=== PATIENT | female | born 1965 | race Caucasian/White ===

== ENCOUNTER 2016-07-08 03:17 | Emergency (ER) | payer SELFPAY ==
[~2016-07-08] VITALS: Ht 152.4 cm; Wt 49.9 kg
[~2016-07-08 03:17] MED LIST: ALBU2.5V13
[2016-07-08 03:56] VITALS: BP 157/98
== END 2016-07-08 04:08 | disposition home or self-care (01) ==
LOC: ER 03:19
DX: R05 Cough (principal); J44.9 Chronic obstructive pulmonary disease, unspecified; Z90.710 Acquired absence of both cervix and uterus; F17.200 Nicotine dependence, unspecified, uncomplicated
CPT/HCPCS: 71010; 99283; A4606; Z7610

== ENCOUNTER 2025-04-16 07:27 | Inpatient (IN) | payer OTHER ==
[~2025-04-16] VITALS: Ht 152.4 cm; Wt 49.2 kg
[2025-04-16] VITALS (12 sets, daily range): BP systolic 121–143; BP diastolic 67–77; TEMP 97.9–98.8; O2SAT 88–99
[2025-04-16] MEDS: IPRATROPIUM NEB FS 0.5 MG/2.5 ML AMPUL.NEB NEB ONE (07:57)
[2025-04-16] MEDS: ALBUTEROL FS 2.5 MG/3 ML VIAL.NEB NEB ONE (07:57)
[2025-04-16] MEDS: IV NS 0.9% 1,000 ML BAG IV ONE (08:00)
[2025-04-16] MEDS ORDERED: ALBUTEROL FS 2.5 MG/3 ML VIAL.NEB ONE (08:04)
[2025-04-16] MEDS ORDERED: IPRATROPIUM NEB FS 0.5 MG/2.5 ML AMPUL.NEB ONE (08:04)
[2025-04-16 08:08] LABS: PLATELET COUNT (AUTO) 320 K/uL (150-450); RED BLOOD CELL COUNT(AUTO) 4.81 MIL/uL (4.0-5.2); RED CELL DISTRIBUTION WIDTH 13.4 % (11.5-15.0); WHITE BLOOD COUNT (AUTO) 15.4 K/uL (4.3-11.0)
[2025-04-16 08:15] LABS: CALCIUM, SERUM 9.3 mg/dL (8.5-10.1); CREATININE 1.1 mg/dL (0.6-1.3); SODIUM SERUM 134 mmol/L (136-145); UREA NITROGEN, BLOOD 13 mg/dL (7-18)
[2025-04-16] MEDS ORDERED: ACETAMINOPHEN 325 MG TABLET ONE ×2 (08:17→08:36)
[2025-04-16] MEDS ORDERED: GUAIFENESIN/D-METHORPHAN HB 5 ML UDC ONE (08:17)
[2025-04-16 08:21] LABS: ASPARTATE AMINOTRANSFERASE 23 U/L (15-37); TOTAL PROTEIN, SERUM 7.6 g/dL (6.4-8.2)
[2025-04-16] MEDS: ACETAMINOPHEN 325 MG TABLET PO ONE (08:34)
[2025-04-16] MEDS: GUAIFENESIN/D-METHORPHAN HB 5 ML UDC PO ONE (08:35)
[2025-04-16] MEDS: CEFTRIAXONE 1GM BAG (ER ONLY) 50 ML IV ONE (09:13)
[2025-04-16] MEDS ORDERED: CEFTRIAXONE 1GM BAG (ER ONLY) 50 ML IV ONE (09:34)
[2025-04-16] MEDS: CEFTRIAXONE 1 G in IV D5W 50 ML IV ONE (09:45)
[2025-04-16] MEDS ORDERED: ONDANSETRON HCL/PF 4 MG/2 ML VIAL IVP PRN (10:30)
[2025-04-16] MEDS ORDERED: MAG HYDROX/AL HYDROX/SIMETH 30 ML UDC PO PRN (10:30)
[2025-04-16] MEDS ORDERED: MAGNESIUM HYDROXIDE 30 ML UDC PO PRN (10:30)
[2025-04-16] MEDS ORDERED: Z GUARD REMEDY 4 OZ OINT TP PRN (10:30)
[2025-04-16] MEDS: AZITHROMYCIN 500 MG in IV D5W 250 ML IV ONE (10:48)
[2025-04-16] MEDS: ENOXAPARIN SODIUM 40 MG/0.4 ML DISP.SYRIN SQ SCH (11:00)
[2025-04-16] MEDS ORDERED: CEFTRIAXONE 1 G in IV D5W 50 ML IV SCH (11:00)
[2025-04-16] MEDS: AZITHROMYCIN 500 MG in IV D5W 250 ML IV SCH (12:57)
[2025-04-16] MEDS: IV NS 0.9% 1,000 ML IV PRN (13:08)
[2025-04-16] MEDS: ALBUTEROL FS 2.5 MG/3 ML VIAL.NEB NEB PRN (13:34)
[2025-04-16] MEDS: IPRATROPIUM NEB FS 0.5 MG/2.5 ML AMPUL.NEB NEB PRN (13:34)
[2025-04-16] MEDS: ACETAMINOPHEN 325 MG TABLET PO PRN (16:59)
[2025-04-16] MEDS: HYDROCODONE/APAP 5/325MG TABLET PO PRN (19:41)
[2025-04-16] MEDS: TEMAZEPAM 15 MG CAPSULE PO PRN (23:37)
[2025-04-17] VITALS (14 sets, daily range): BP systolic 113–160; BP diastolic 44–81; TEMP 97.5–99; O2SAT 9–99
[2025-04-17] MEDS: GUAIFENESIN/D-METHORPHAN HB 5 ML UDC PO ONE (00:36)
[2025-04-17] MEDS: PANTOPRAZOLE 40 MG TABLET.DR PO SCH (08:23)
[2025-04-17] MEDS ORDERED: HYDR12.55 PO (09:13)
[2025-04-17] MEDS ORDERED: LISI20TA30 PO (09:13)
[2025-04-17 09:57] LABS: PLATELET COUNT (AUTO) 268 K/uL (150-450); RED BLOOD CELL COUNT(AUTO) 4.29 MIL/uL (4.0-5.2); RED CELL DISTRIBUTION WIDTH 13.8 % (11.5-15.0); WHITE BLOOD COUNT (AUTO) 13.2 K/uL (4.3-11.0)
[2025-04-17] MEDS: LISINOPRIL (20MG) 20 MG TABLET PO SCH (10:00)
[2025-04-17 10:58] LABS: CALCIUM, SERUM 8.6 mg/dL (8.5-10.1); CREATININE 0.8 mg/dL (0.6-1.3); PHOSPHORUS 3.0 mg/dL (2.5-4.9); SODIUM SERUM 138.0 mmol/L (136-145); UREA NITROGEN, BLOOD 7.0 mg/dL (7-18)
[2025-04-17 11:04] LABS: LDL 79.0 mg/dL (0-99)
[2025-04-17] MEDS: CEFTRIAXONE 1 G in IV D5W 50 ML IV SCH (11:09)
[2025-04-17] MEDS ORDERED: MENTHOL/CETYLPYRD (CEPACOL) 1 LOZ LOZENGE PO PRN (12:00)
[2025-04-17] MEDS: ALBUTEROL FS 2.5 MG/3 ML VIAL.NEB NEB SCH (14:00)
[2025-04-17] MEDS: IPRATROPIUM NEB FS 0.5 MG/2.5 ML AMPUL.NEB NEB SCH (14:00)
[2025-04-17] MEDS: POTASSIUM CHLORIDE 20 MEQ TAB.PRT.SR PO ONE (18:57)
[2025-04-17] MEDS: GUAIFENESIN 300 MG/15 ML UDC PO PRN (18:58)
[2025-04-18] VITALS (9 sets, daily range): BP systolic 122–139; BP diastolic 59–101; TEMP 98.2–98.6; O2SAT 92–99
[2025-04-18 07:43] LABS: PLATELET COUNT (AUTO) 321 K/uL (150-450); RED BLOOD CELL COUNT(AUTO) 4.41 MIL/uL (4.0-5.2); RED CELL DISTRIBUTION WIDTH 13.7 % (11.5-15.0); WHITE BLOOD COUNT (AUTO) 14.3 K/uL (4.3-11.0)
[2025-04-18] MEDS: POTASSIUM CHLORIDE 20 MEQ TAB.PRT.SR PO SCH (08:32)
[2025-04-18 09:16] LABS: CALCIUM, SERUM 8.9 mg/dL (8.5-10.1); CREATININE 0.8 mg/dL (0.6-1.3); SODIUM SERUM 140.0 mmol/L (136-145); UREA NITROGEN, BLOOD 18.0 mg/dL (7-18)
[2025-04-18] MEDS: FUROSEMIDE 40 MG/4 ML VIAL IV SCH (09:52)
[2025-04-18] MEDS: FUROSEMIDE 40 MG/4 ML VIAL IV ONE (18:45)
[2025-04-18 20:11] LABS: APPEARANCE,URINE CLEAR (CLEAR); BLOOD, URINE Negative Ery/uL (NEGATIVE); LEUKOCYTE ESTERASE ,URINE Negative (NEGATIVE); NITRITE, URINE NEGATIVE (NEGATIVE); UGLUCOSE Negative (NEGATIVE)
[2025-04-19] VITALS (9 sets, daily range): BP systolic 164; BP diastolic 80; TEMP 98.4; O2SAT 90–100
[2025-04-19 10:31] LABS: PLATELET COUNT (AUTO) 367 K/uL (150-450); RED BLOOD CELL COUNT(AUTO) 4.67 MIL/uL (4.0-5.2); RED CELL DISTRIBUTION WIDTH 13.9 % (11.5-15.0); WHITE BLOOD COUNT (AUTO) 14.1 K/uL (4.3-11.0)
[2025-04-19 10:40] LABS: ASPARTATE AMINOTRANSFERASE 25.0 U/L (15-37); CALCIUM, SERUM 9.4 mg/dL (8.5-10.1); CREATININE 1.0 mg/dL (0.6-1.3); PHOSPHORUS 4.2 mg/dL (2.5-4.9); SODIUM SERUM 138.0 mmol/L (136-145); TOTAL PROTEIN, SERUM 6.7 g/dL (6.4-8.2); UREA NITROGEN, BLOOD 29.0 mg/dL (7-18)
[2025-04-19] MEDS ORDERED: IPRA0.2S9 NEB (11:34)
[2025-04-19] MEDS ORDERED: AZIT250T13 PO (11:34)
[2025-04-19] MEDS ORDERED: ALBUT2 NEB (11:34)
[2025-04-19] MEDS ORDERED: NEBU-171 MC (11:34)
[2025-04-19] MEDS ORDERED: PRED20TA PO (11:34)
[2025-04-19] MEDS ORDERED: FLUT1BLS6 IH (11:34)
[2025-04-19] MEDS ORDERED: GUAI600T53 PO (11:34)
[2025-04-19] MEDS ORDERED: PANT40TA49 PO (11:34)
[2025-05-05 06:09] LABS: *SPE A/G RATIO 0.8 (0.7-1.7); *SPE ALBUMIN 2.6 g/dL (2.9-4.4); *SPE ALPHA-1-GLOBULIN 0.5 g/dL (0.0-0.4); *SPE ALPHA-2-GLOBULIN 1.0 g/dL (0.4-1.0); *SPE BETA GLOBULIN 1.2 g/dL (0.7-1.3); *SPE GLOBULIN, TOTAL 3.4 g/dL (2.2-3.9); *SPE M-SPIKE Not Observed g/dL (Not Observed); *SPE PROTEIN TOTAL 6.0 g/dL (6.0-8.5); *SPEGAMMA GLOBULIN 0.8 g/dL (0.4-1.8)
== END 2025-04-19 18:24 | disposition home health service (06) | DRG 720 ==
LOC: ER 07:31 → TELE 10:43 → MED 04-17 10:26
PROVIDERS: ADMIT Nurse Practitioner Acute Care; ATTEND Nurse Practitioner Acute Care
DX: A41.9 Sepsis, unspecified organism (principal); J96.01 Acute respiratory failure with hypoxia; E44.0 Moderate protein-calorie malnutrition; J15.9 Unspecified bacterial pneumonia; E88.09 Other disorders of plasma-protein metabolism, not elsewhere classified; J44.0 Chronic obstructive pulmonary disease with (acute) lower respiratory infection; E05.90 Thyrotoxicosis, unspecified without thyrotoxic crisis or storm; F15.10 Other stimulant abuse, uncomplicated; I10 Essential (primary) hypertension; Z71.6 Tobacco abuse counseling; Z20.822 Contact with and (suspected) exposure to COVID-19; F17.210 Nicotine dependence, cigarettes, uncomplicated; J44.1 Chronic obstructive pulmonary disease with (acute) exacerbation; Z90.710 Acquired absence of both cervix and uterus; Z68.21 Body mass index [BMI] 21.0-21.9, adult; T38.0X5A Adverse effect of glucocorticoids and synthetic analogues, initial encounter; Y92.89 Other specified places as the place of occurrence of the external cause; D72.829 Elevated white blood cell count, unspecified
CPT/HCPCS: 36415; 71045-TC; 80048-TC; 80053-TC; 80061-TC; 80076-TC; 83605-TC; 83735-TC; 84100-TC; 84155; 84165; 84439-TC; 84443-TC; 84484-TC; 85025-TC; 87040-TC; 93307-TC; 94760-TC; 94762-TC; 94799-TC; 97116-TC; 97530-TC; A4223; G0378; J0456; J0696; J1650; J1938; J7030; J7060